=== PATIENT | female | born 1940 | race Caucasian/White ===

== ENCOUNTER 2019-11-01 02:24 | Inpatient (IN) ==
--- NOTE | 2019-10-25 08:23 | EKG Report ---
Test Performed on : 10/25/2019 08:18:46 AM Test Reason : PAT Blood Pressure : / mmHG Vent. Rate : 068 BPM Atrial Rate : 068 BPM P-R Int : 192 ms QRS Dur : 084 ms QT Int : 374 ms P-R-T Axes : 045 -22 052 degrees QTc Int : 397 ms Normal sinus rhythm. with sinus arrhythmia. Possible Anteroseptal infarct , age undetermined Abnormal ECG When compared with ECG of 04-MAY-2018 15:26, Borderline criteria for Anteroseptal infarct are now present QT has shortened Confirmed by Omar GARDNER, Lincoln Berman ([id number]) on 10/26/2019 12:22:50 PM
[2019-10-25 09:00] LABS: URINE SOURCE CLEAN CATCH
[2019-10-25 09:12] LABS: BASO# 0.01 X1000 (0.0-0.2); BASO% 0.2 % (0.0-0.8); EOS% 3.7 % (0.0-10.0); HEMATOCRIT 44.2 % (37.0-47.0); HEMOGLOBIN 14.7 g/dL (12.0-16.0); LYMPH# 1.48 X1000 (1.2-3.4); LYMPH% 27.4 % (20.5-51.1); MCH 31.3 PG (27-31); MCHC 33.3 g/dL (33-37); MCV 94.2 FL (81-99); MONO# 0.55 X1000 (0.11-0.59); MONO% 10.2 % (1.7-9.3); MPV 9.8 FL (7.4-10.4); NEUT# 3.17 X1000 (1.4-6.5); NEUT% 58.5 % (42.2-75.2); PLT 239 X1000 (130-400); RBC 4.69 XMIL (4.2-5.4); RDW 12.3 % (11.5-14.5); WBC 5.41 X1000 (4.8-10.8)
[2019-10-25 09:20] LABS: INR 0.9; PROTIME 12.3 Seconds (11.0-16.0)
[2019-10-25 09:21] LABS: PTT 25.7 Seconds (22.3-41.8)
[2019-10-25 09:53] LABS: AGAP 13; BILIRUBIN URINE NEGATIVE (NEGATIVE); BLOOD URINE NEGATIVE (NEGATIVE); BUN 21 mg/dL (8-22); CALCIUM 9.3 mg/dL (8.8-10.2); CHLORIDE 103 mmol/L (98-107); COLOR YELLOW; COSMO 283; CREATININE 0.9 mg/dL (0.5-0.9); ESTIMATED GFR > 60; GLUCOSE 101 mg/dL (70-104); GLUCOSE URINE NEGATIVE (NEGATIVE); KETONE URINE NEGATIVE (NEGATIVE); LEUKOCYTES URINE NEGATIVE (NEGATIVE); NITRITE URINE NEGATIVE (NEGATIVE); POTASSIUM 4.1 mmol/L (3.5-5.1); PROTEIN URINE NEGATIVE (NEGATIVE); SODIUM 140 mmol/L (136-145); SP GRAVITY URINE 1.016; TCO2 24 mmol/L (25-35); TURBIDITY URINE HAZY (CLEAR); UROBILINOGEN URINE NORMAL (NORMAL)
[2019-10-25 09:54] LABS: UR EPITHELIAL CELLS <10 /HPF (<10); URINE BACTERIA NEGATIVE /HPF; URINE RBC <10 /HPF (<10); URINE WBC <10 /HPF (<10)
[2019-10-25 11:17] LABS: HEMOGLOBIN A1C 5.7 % (4.8-6.0)
[2019-11-01] MEDS ORDERED: PEPCID ONE (06:57)
[2019-11-01] MEDS ORDERED: COLACE ONE (06:57)
[2019-11-01] MEDS ORDERED: REGLAN ONE (06:57)
[2019-11-01] MEDS ORDERED: KEFZOL 1 GM/D5W 1 GM/50 ML IVPB ONE (06:58)
[2019-11-01] MEDS ORDERED: LR 1,000 ML ONE (06:58)
[2019-11-01] MEDS ORDERED: LYRICA ONE (06:58)
[2019-11-01] MEDS ORDERED: ROBINUL ONE ×2 (08:19→09:39)
[2019-11-01] MEDS ORDERED: XYLOCAINE-MPF 2% ONE (08:19)
[2019-11-01] MEDS ORDERED: DIPRIVAN 1% ONE (08:19)
[2019-11-01] MEDS ORDERED: QUELICIN (DOSE) ONE (08:19)
[2019-11-01] MEDS ORDERED: DURAMORPH ONE (08:20)
[2019-11-01] MEDS ORDERED: TORADOL ONE ×2 (08:20→08:58)
[2019-11-01] MEDS ORDERED: SODIUM CHLORIDE 0.9% ONE (08:21)
[2019-11-01] MEDS ORDERED: EXPAREL 1.3% ONE (08:21)
[2019-11-01] MEDS ORDERED: NEOSPORIN G.U. IRRIGANT ONE (08:21)
[2019-11-01] MEDS ORDERED: CYKLOKAPRON 1,000 MG/NS 1,000 MG/100 ML IVPB ONE (08:21)
[2019-11-01] MEDS ORDERED: MARCAINE 0.25% PF ONE (08:21)
[2019-11-01] MEDS ORDERED: ZEMURON ONE (08:47)
[2019-11-01] MEDS ORDERED: DECADRON ONE (08:58)
[2019-11-01] MEDS ORDERED: OFIRMEV 1000 MG/ISOTONIC SOLN 1,000 MG/100 ML BOTTLE ONE (08:58)
[2019-11-01] MEDS ORDERED: ZOFRAN ONE (08:58)
[2019-11-01] MEDS ORDERED: FENTANYL ONE (09:14)
[2019-11-01] MEDS ORDERED: NEOSTIGMINE ONE (09:39)
[2019-11-01 09:53] LABS: URINE SOURCE CATH
[2019-11-01] MEDS ORDERED: EPHEDRINE ONE (09:57)
[2019-11-01 09:59] LABS: BILIRUBIN URINE NEGATIVE (NEGATIVE); BLOOD URINE NEGATIVE (NEGATIVE); COLOR STRAW; GLUCOSE URINE NEGATIVE (NEGATIVE); KETONE URINE NEGATIVE (NEGATIVE); LEUKOCYTES URINE NEGATIVE (NEGATIVE); NITRITE URINE NEGATIVE (NEGATIVE); PROTEIN URINE NEGATIVE (NEGATIVE); SP GRAVITY URINE 1.004; TURBIDITY URINE CLEAR (CLEAR); UR EPITHELIAL CELLS <10 /HPF (<10); URINE BACTERIA NEGATIVE /HPF; URINE RBC <10 /HPF (<10); URINE WBC <10 /HPF (<10); UROBILINOGEN URINE NORMAL (NORMAL)
[2019-11-01] MEDS ORDERED: VANCOMYCIN ONE (10:07)
[2019-11-01] MEDS ORDERED: NS 1,000 ML ONE (11:26)
--- NOTE | 2019-11-01 11:58 | Diag Imaging Result Doc PS360 ---
SHOULDER 1 VIEW LEFT - 11/01/2019 INDICATION: L TSA TECHNIQUE: COMPARISON: None FINDINGS: There has been left total shoulder arthroplasty. Alignment is anatomic. No hardware fracture or loosening. IMPRESSION: No complication. Electronically signed by Uriel Sabillon 11/01/2019 11:55 AM
[2019-11-01] MEDS ORDERED: MORPHINE IV PRN ×3 (12:15)
[2019-11-01] MEDS ORDERED: ZOFRAN PO PRN (12:15)
[2019-11-01] MEDS ORDERED: OXY IR PO PRN (12:15)
[2019-11-01] MEDS: NS 1,000 ML IV SCH (12:22)
[2019-11-01] MEDS: OXY IR PO PRN ×2 (14:36→23:12)
[2019-11-01] MEDS ORDERED: XANAX XR PO PRN (14:45)
[2019-11-01] MEDS ORDERED: MIRALAX PO PRN (14:45)
[2019-11-01] MEDS ORDERED: CYKLOKAPRON 1,000 MG in NS 100 ML IV ONE (15:00)
--- NOTE | 2019-11-01 15:53 | OPERATIVE NOTE ---
PROCEDURE DATE: 11/01/2019 PREOPERATIVE DIAGNOSIS: Left glenohumeral arthritis. POSTOPERATIVE DIAGNOSIS: Left glenohumeral arthritis. PROCEDURE: Left reverse shoulder arthroplasty with a size 10 cemented stem, a 38+ 3 humeral cup, a 38 eccentric Glenosphere and a standard Metaglene. SURGEON: Dr. Rodríguez. BLANKET CUTTER HAND: ZAKIYA Neri, who was necessary for proper retraction and manipulation of the extremity during the case and improved efficiency. SECOND TERRAZZO POLISHER: Wellington Valero RN. ANESTHESIA: General. IV FLUIDS: 1200 mL lactated Ringer's. ESTIMATED BLOOD LOSS: 200 mL. COMPLICATIONS: None. INDICATION: The patient is a 78-year-old female with a chronic history of pain and discomfort of the left shoulder. She has continued with pain and discomfort despite appropriate nonoperative treatment. X-rays revealed significant degenerative glenohumeral arthritis. Recommendation to proceed with left reverse total shoulder arthroplasty was offered. Risks and benefits of surgery were explained, including the risks of anesthesia, , bleeding, infection, failure to relieve pain, postoperative stiffness, nerve injury, blood clots, and other imponderables. All questions were answered. The patient and family wished to proceed with surgery. DETAILS OF OPERATION: The patient was taken to the operating room and placed supine on the operating table. Once adequate anesthesia was obtained, patient was placed in semi-Valente beach- chair position. The left shoulder was subsequently prepped and draped in the usual sterile fashion. A standard deltopectoral incision made with a skin knife. Hemostasis was obtained using electrocautery. The deltopectoral interval was then developed. Retractors were then placed. The conjoined tendon was retracted as well. The attention was then turned to the subscapularis tendon. Stay sutures were placed. Approximately 1 cm medial to its insertion was released. Further release of the posterior superior aspect of the rotator cuff was released. The starting reamer was then placed in the intramedullary canal. This was followed by sequential reaming up to size 10. The humeral head cutting block was placed and pinned in position approximately 15 to 20 degrees of retroversion. The humeral head was resected. The patient did have an inferior osteophyte. This was removed with a rongeur. After this had been performed, a protective disk was then placed. Attention turned to the glenoid. The circumferential dissection was performed with a deep knife. A guide was then placed in position. Reaming was then conducted. The central hole was then dilated. The wound was copiously irrigated with antibiotic pulsatile lavage. A standard Metaglene was then impacted in position. Two locking screws were placed and two nonlocking screws. After this was performed a 38 +2 mm lateralized eccentric Glenosphere was then placed with the eccentricity placed inferiorly. After this was performed attention then turned to the humerus. Intramedullary guide was placed in position. The proximal humerus was reamed. The trial stem was then placed. It had inadequate purchase even with autologous bone grafting and therefore we proceeded with cement. Vancomycin was mixed on the back table. Copious irrigation was performed of the intramedullary canal. A size 10 cemented stem was then placed, and approximately 15 to 20 degrees of retroversion. After cement cured, the trial cup was placed. The 38+ 3 humeral cup had excellent stability and range of motion. The trial cup was removed. The wound was copiously irrigated with antibiotic pulsatile lavage. 38+ 3 humeral cup was then placed. The shoulder was reduced, carried through range of motion and had excellent stability and range of motion. The Exparel was placed to the deep soft tissue as well as subcutaneous tissue. After irrigating once again a #2 FiberWire was used to repair the subscapularis tendon. 2-0 Vicryl was then placed followed by running 2-0 Prolene. Benzoin and Steri-Strips were applied. Adaptic, sterile 4 x 4's, ABD pad and tape the left shoulder, followed by shoulder immobilizer. All counts were correct. Patient tolerated the procedure well and was transferred to the recovery room in stable condition. cc: El Rodríguez MD
[2019-11-01] MEDS: KEFZOL 1 GM/D5W 1 GM/50 ML IVPB IV SCH (16:54)
[2019-11-01] MEDS: TYLENOL PO SCH ×2 (16:54→23:11)
[2019-11-01] MEDS: PERIDEX MT SCH (23:10)
[2019-11-01] MEDS: COLACE PO SCH (23:11)
[2019-11-02] MEDS: NS 1,000 ML IV SCH ×2 (01:19→15:39)
[2019-11-02] MEDS: KEFZOL 1 GM/D5W 1 GM/50 ML IVPB IV SCH (01:19)
[2019-11-02] MEDS: TYLENOL PO SCH ×4 (05:50→16:31)
[2019-11-02 07:32] LABS: HEMATOCRIT 40.9 % (37.0-47.0); HEMOGLOBIN 13.2 g/dL (12.0-16.0)
[2019-11-02] MEDS: OXY IR PO PRN ×2 (07:44→11:03)
[2019-11-02 08:00] LABS: AGAP 7; BUN 13 mg/dL (8-22); CALCIUM 9.1 mg/dL (8.8-10.2); CHLORIDE 102 mmol/L (98-107); COSMO 278; CREATININE 0.7 mg/dL (0.5-0.9); ESTIMATED GFR > 60; GLUCOSE 137 mg/dL (70-104); POTASSIUM 3.6 mmol/L (3.5-5.1); SODIUM 138 mmol/L (136-145); TCO2 29 mmol/L (25-35)
[2019-11-02] MEDS: PERIDEX MT SCH ×2 (09:12→20:03)
[2019-11-02] MEDS: COLACE PO SCH ×2 (09:12→20:03)
[2019-11-02] MEDS: FLONASE NAS SCH (09:14)
--- NOTE | 2019-11-02 11:31 | ORTHOPAEDICS PROGRESS NOTE ---
DATE: 11/02/2019 SUBJECTIVE: The patient is a pleasant 78-year-old female who is 1 day status post left reverse shoulder arthroplasty. She is currently resting comfortably. PHYSICAL EXAMINATION: The patient's wound looks good. There are no signs or symptoms of infection. She is able to flex and extend all her fingers. Neurovascularly intact distally. DIAGNOSTIC STUDIES: No x-rays were obtained today. Labs are pending. IMPRESSION: Postoperative day #1 status post left reverse shoulder arthroplasty. check services clerk have been consulted for evaluation for inpatient rehabilitation. cc: El Rodríguez MD
--- NOTE | 2019-11-02 11:34 | Diag Imaging Result Doc PS360 ---
EXAM: CHEST-1 VIEW 11/02/2019 HISTORY: rehab TECHNIQUE: AP portable upright at 1123 COMMENT: There are calcified nodes in both umair and the aorticopulmonary window. There is no evidence of acute cardiac or pulmonary disease. Compared to 05/05/2018 there has been left total shoulder arthroplasty but otherwise no significant change. IMPRESSION: No acute disease. Electronically signed by Des Curiel 11/02/2019 11:32 AM
[2019-11-02] MEDS: NORCO-10 PO PRN ×2 (15:55→20:03)
[2019-11-03] MEDS: NORCO-10 PO PRN ×6 (00:15→21:37)
[2019-11-03] MEDS: TYLENOL PO SCH ×2 (03:21→06:09)
[2019-11-03 06:35] LABS: HEMATOCRIT 39.7 % (37.0-47.0)
[2019-11-03] MEDS: COLACE PO SCH ×2 (08:34→20:57)
[2019-11-03] MEDS: FLONASE NAS SCH (08:34)
[2019-11-03] MEDS: PERIDEX MT SCH ×2 (08:34→20:57)
--- NOTE | 2019-11-03 11:32 | DISCHARGE SUMMARY ---
ADMISSION DATE: 11/01/2019 DISCHARGE DATE: 11/04/2019 ADMITTING DIAGNOSIS: Degenerative arthritis of the left shoulder. DISCHARGE DIAGNOSIS: Degenerative arthritis of the left shoulder, status post right reverse total shoulder arthroplasty. PROCEDURES: On 11/01/2019, Dr. Rodríguez performed a left reverse total shoulder arthroplasty. HOSPITAL COURSE: Ms. Linares is a 78-year-old female with a history of worsening pain in her left shoulder that is worse with movement. X-rays reveal degenerative arthritis of the left shoulder. Dr. Rodríguez discussed a left total shoulder arthroplasty with Ms. Linares and she wished to proceed. She was taken to the operating room where satisfactory anesthesia was obtained. She tolerated the procedure well and was transferred to the recovery room. After satisfactory recovery, she was transferred to [address] [place] [address]. She has had an uneventful postoperative course. She had a right total shoulder arthroplasty and at that time went to [facility] as she has no one at home to help her, and she wishes to go back upon discharge from this visit. The patient has no one at home with her and no one to help her with her activities of daily living. At the time today, while she is ready for discharge, she was noted to be resting comfortably in her bed. Her wound is well appearing at this time with no signs or symptoms of infection. She is able to flex and extend all of her fingers and she is neurovascularly intact distally. DISCHARGE DISPOSITION: Ms. Linares will be going to [facility]. She has already been approved and a bed is available tomorrow. She will be nonweightbearing on her left shoulder, but will have passive range of motion while there with physical therapy. She is going to follow up in the office once she is discharged from rehab. Her suture can be removed in 12 to 14 days. Signs of infection, such as redness, swelling, or drainage, need to be discussed with Dr. Rodríguez and they can call the office if this occurs. She can shower tomorrow and allow water to run over this area, but not hit it directly. DISCHARGE MEDICATIONS: Include [place] 10 one every 4 hours p.r.n. pain., Xanax XR 0.5 mg p.o. daily p.r.n. anxiety, Flonase 2 sprays daily, MiraLAX 17 grams one dose p.o. daily p.r.n. constipation and Colace 100 mg p.o. b.i.d., Lovaza 3 grams p.o. daily, and a calcium and vitamin D chewable will tablet 1 pill p.o. daily. Dictated by ZAKIYA Sims for El Rodríguez MD cc: El Rodríguez MD
--- NOTE | 2019-11-03 13:29 | ORTHOPAEDICS PROGRESS NOTE ---
DATE: 11/03/2019 SUBJECTIVE: The patient is a pleasant 78-year-old female who is 2 days status post left reverse total shoulder arthroplasty. She is currently resting comfortably. She was having some issues with oxycodone, felt it was causing nightmares, therefore, we switched to [place] 10 mg. PHYSICAL EXAMINATION: The patient's left upper extremity dressing is intact. She is neurovascularly distally. Has good heavy equipment supervisor strength. LABORATORY: Her labs from yesterday, hemoglobin and hematocrit revealed 13.2 and 40.9. Labs are pending this morning. IMPRESSION: Postoperative day #2 status post left reverse total shoulder arthroplasty. PLAN: At this point, the patient seems to be progressing well. It is felt the patient will benefit from inpatient rehabilitation and she is agreeable to this. Will plan on discharging to rehab tomorrow. cc: El Rodríguez MD
[2019-11-03] MEDS: NS 1,000 ML IV SCH (18:22)
[2019-11-04] MEDS: NORCO-10 PO PRN ×2 (02:01→08:43)
[2019-11-04 07:36] LABS: HEMOGLOBIN 12.9 g/dL (12.0-16.0)
[2019-11-04 08:19] VITALS: BP 122/69
[2019-11-04] MEDS: NS 1,000 ML IV SCH (08:27)
[2019-11-04] MEDS: PERIDEX MT SCH (08:27)
[2019-11-04] MEDS: COLACE PO SCH (08:27)
[2019-11-04] MEDS: FLONASE NAS SCH (08:29)
--- NOTE | 2019-11-04 19:46 | ORTHOPAEDICS PROGRESS NOTE ---
DATE: 11/04/2019 SUBJECTIVE: Ms. Linares is doing great. She was up around the room this morning, and feeling really well. OBJECTIVE: On left upper extremity exam, her dressing is clean, dry and intact. All her hand intrinsics are intact. She has good sensation to light touch to all the fingers and good capillary refill to all the fingers. ASSESSMENT: Status post left reverse total shoulder arthroplasty. PLAN: I think Ms. Linares is doing well. She will be discharged to rehab today, and she will follow with Dr. Rodríguez in a few weeks. cc: MD El Craft MD
== END 2019-11-04 10:21 | DRG 483 ==
LOC: SURHOLD 02:24 → 4N 08:40
PROVIDERS: ADMIT Orthopaedic Surgery Adult Reconstructive Orthopaedic Surgery; ATTEND Orthopaedic Surgery Adult Reconstructive Orthopaedic Surgery